=== PATIENT | female | born 1975 | race African-American/Black ===

== ENCOUNTER 2016-05-15 22:51 | Emergency (ER) ==
--- NOTE | 2016-05-16 01:22 | PROVIDER DOCUMENTATION ---
Addendum entered and electronically signed by Warren Hale MD 05/16/16 03:25: Departure - Departure Time of Disposition Order: 03:25 DIAGNOSIS: Pyelonephritis Disposition: HOME 01 Certified Medical Emergency: Emergent Condition: Good Prescriptions: Sulfamethoxazole/Tmp D.s. [Septra Ds] 1 each PO BID #14 tablet Referrals: Isak Borrero CRNP [Primary Care Provider] - Original Note: HPI-General Adult - General Source: patient - History of Present Illness -Gen Adult Nature of Presenting Problems: Pt is a 41 yof who presents to ER with CC of Cough and chest pain x1 week. Pt reports that approximately 1 week ago, she had an asthma attack and has since developed a worsening cough that has caused her to develop rib pain. Pt now complains of cough, headache, body aches, F/chills, sob, and wheezing. On exam, pt is severely tender to palpation over RUQ. Location of Pain/Injury: reports: other (Chest wall) Pain Radiation: reports: no radiation Quality of Pain: reports: tightness Severity: reports: moderate Onset/Duration: reports: 1 week ago Timing: reports: still present Context/Activities at Onset: reports: other (post asthma attack) Modifying Factors: worse with: palpation Associated Symptoms: reports: chest pain, cough, fatigue, fever/chills, headaches, muscle aches, shortness of breath, pain with inspiration, weakness. denies: nausea, sensory/motor loss, swelling/mass in abdomen, syncope, vomiting , trouble walking <Mandeep Amado - Last Filed: 05/16/16 01:32> <Warren Hale - Last Filed: 05/16/16 03:20> - General Chief Complaint: Cold Symptoms Stated Complaint: COLD SX Time Seen by Provider: 05/16/16 01:14 Allergies/Adverse Reactions: Patient Allergies Allergy/AdvReac Type Severity Reaction Status Date / Time Latex, Natural Rubber AdvReac Mild RASH Verified 05/16/16 00:12 Home Medications: Home Medication List Medication Instructions Recorded Confirmed Last Taken Type Aspirin 81 mg PO DAILY #0 tablet 01/02/12 07/15/14 07/14/14 Rx Budesonide/Formoterol Inhaler 2 puff INH BID #0 inhaler 01/02/12 07/15/1407/14/ 15 Rx [Symbicort 160/4.5 Microgm Inhaler] Digoxin [Lanoxin] 125 microgm PO QAM #0 tablet 01/02/12 07/15/14 07/14/14 Rx Furosemide [Lasix] 20 mg PO QAM #0 tablet 01/02/12 07/15/14 07/14/14 Rx Magnesium Oxide [Mag-Ox] 400 mg PO DAILY #30 tablet 01/02/12 07/15/14 07/14/14 Rx Potassium Chloride E.r. [Klor-Con] 20 meq PO DAILY #30 tablet 01/02/12 07/15/14 07/14/14 Rx Carvedilol [Coreg] 12.5 mg PO BID 02/18/13 07/15/14 07/14/14 History Fluticasone/Salmeterol [Advair 1 each IH DAILY 05/07/13 07/15/14 07/14/14 History 250-50 Diskus] LISINOpril [Prinivil] 20 mg PO BID 05/07/13 07/15/14 07/14/14 History Metformin [Glucophage] 500 mg PO BID CC 04/01/14 07/15/14 07/14/14 History Codeine/Promethazine [Phenergan 10 ml PO TID PRN PRN #120 ml 07/15/14 Unknown Rx with Codeine] Prednisone 20 mg PO DAILY #7 tablet 07/15/14 Unknown Rx Spironolactone 25 mg PO DAILY 07/15/14 07/15/14 07/14/14 History Review of Systems - Adult - REVIEW OF SYSTEMS - ADULT Constitutional: reports: chills, fever, fatique. denies: night sweats, weight gain, weight loss Eyes: reports: no symptoms reported Ears, Nose, Mouth & Throat: reports: no symptoms reported Cardiovascular: reports: chest pain. denies: edema, heart murmur, irregular heart rate, orthopnea, palpitations, poor circulation, PND, syncope Respiratory: reports: cough, dyspnea on exertion, excessive sputum production, pleurisy, shortness of breath, wheezing. denies: chronic cough, hemoptysis Gastrointestinal: reports: abdominal pain. denies: hematemesis, constipation, diarrhea, difficulty swallowing, frequent heartburn, nausea, poor appetite, rectal bleeding, vomiting Genitourinary: reports: no symptoms reported Musculoskeletal: reports: muscle aches, muscle weakness. denies: bone pain, back pain, frequent leg cramps, joint pain, joint swelling, neck pain Integumentary: reports: no symptoms reported Neurological: reports: no symptoms reported Psychiatric: reports: no symptoms reported Endocrine: reports: no symptoms reported Hematologic/Lymphatic: reports: no symptoms reported Allergic/Immunologic: reports: no symptoms reported All Other Systems: Reviewed and Negative <Mandeep Amado - Last Filed: 05/16/16 01:32> Past History - Adult - PAST MEDICAL HISTORY-ADULT Review of Records: reports: Nursing Assessment Review, Medications Reviewed Cardiovascular: reports: CHF, HTN Gastrointestinal: reports: GERD Endocrine/Immune: reports: Diabetes - PRIOR SURGERIES/PROCEDURES Surgical/Procedure History: reports: reviewed, not pertinent - PRIOR HOSPITALIZATIONS Prior Hospitalizations: reports: for other non-related - IMMUNIZATION STATUS Childhood Immunizations: See Nurse Assessment Flu Vaccine: See Nurse Assessment <Mandeep Amado - Last Filed: 05/16/16 01:32> Physical Exam-General - PHYSICAL EXAM-ADULT Initial Vital Signs Reviewed: Yes - CONSTITUTIONAL General Appearance: appears well, alert, moderate distress, lethargic, slow to respond. negative: no apparent distress, mild distress, severe distress, cachetic, obese, thin, anxious, obtunded, combative - NECK Neck: non-tender, full range of motion, supple. negative: C-spine tenderness, limited range of motion, lymphadenopathy - RESPIRATORY Respiratory: wheezing (mild), other (moderate central chest pain on palpation). negative: chest non-tender, lungs clear, normal breath sounds, respiratory distress, decreased breath sounds, accessory muscle use - CARDIOVASCULAR Cardiovascular: normal peripheral pulses, regular rate, rhythm. negative: bradycardia, tachycardia, diastolic murmur, systolic murmur, irregularly irregular - GASTROINTESTINAL (ABDOMEN) Abdominal Exam: normal bowel sounds, soft, tenderness (RUQ severely tender on palpation). negative: non tender, abnormal bowel sounds, distended, guarding, mass - MUSCULOSKELETAL Back Exam: no CVA tenderness, no vertebral tenderness. negative: CVA tenderness , decreased range of motion, ecchymosis, muscle spasm, swelling, vertebral tenderness Extremity: normal range of motion, non-tender, normal gait. negative: erythema , inflammation, pedal edema, slow capillary refill, swelling, tenderness - NEUROLOGIC Neurologic: grossly normal, no motor/sensory deficits - PSYCHIATRIC Psych/Mental Status: normal thought content, normal thought process, oriented x 3, depressed affect. negative: normal mood/affect <Mandeep Amado - Last Filed: 05/16/16 01:32> Progress - PLAN OF CARE/RESULTS Progress/Plan/Lab Results: POC: Blood work - XRAY 1 XRAY: Bilateral XRAY Study: Chest Impression: See EMR Report XRAY Interpretation: Normal <Mandeep Amado - Last Filed: 05/16/16 01:32> Departure <Mandeep Amado - Last Filed: 05/16/16 01:32> - Departure Time of Disposition Order: 03:19 Certified Medical Emergency: Emergent <Warren Hale - Last Filed: 05/16/16 03:20> - Departure DIAGNOSIS: Pyelonephritis Disposition: HOME 01 Condition: Good Referrals: Isak Borrero CRNP [Primary Care Provider] - Attestation - Scribe Verification/Attestation Scribe:: Mandeep Amado Acting as Scribe for:: Warren Hale Scribe documention review:: This chart was documented by a scribe and accurately reflects the service the provider performed and the decisions made by the provider. <Mandeep Amado - Last Filed: 05/16/16 01:32> Physician Attestation
[2016-05-16] MEDS ORDERED: MOTRIN PO ONE (02:10)
[2016-05-16 02:12] LABS: MANUAL DIFF NEEDED? NO
[2016-05-16 02:13] LABS: BASO% 0.3 % (0.0-0.8); EOS# 0.32 X1000 (0.0-0.7); EOS% 4.1 % (0.0-10.0); HEMATOCRIT 34.8 % (37.0-47.0); HEMOGLOBIN 11.6 g/dL (12.0-16.0); LYMPH# 0.73 X1000 (1.2-3.4); LYMPH% 9.4 % (20.5-51.1); MCH 26.5 PG (27-31); MCHC 33.3 g/dL (33-37); MCV 79.5 FL (81-99); MONO# 0.78 X1000 (0.11-0.59); MONO% 10.1 % (1.7-9.3); MPV 10.2 FL (7.4-10.4); NEUT% 76.1 % (42.2-75.2); PLT 329 X1000 (130-400); RBC 4.38 XMIL (4.2-5.4)
[2016-05-16 02:21] LABS: URINE MICRO REVIEW NEEDED? NO; URINE SOURCE CLEAN CATCH
[2016-05-16 02:23] LABS: BILIRUBIN URINE NEGATIVE (NEGATIVE); BLOOD URINE MODERATE (NEGATIVE); COLOR YELLOW; GLUCOSE URINE NEGATIVE (NEGATIVE); LEUKOCYTES URINE SMALL (NEGATIVE); NITRITE URINE POSITIVE (NEGATIVE); PH URINE 7.5; PROTEIN URINE TRACE mg/dL (NEGATIVE); SP GRAVITY URINE 1.012; TURBIDITY URINE HAZY (CLEAR); UROBILINOGEN URINE NORMAL (NORMAL)
[2016-05-16 02:25] LABS: UR EPITHELIAL CELLS <10 /HPF (<10); URINE BACTERIA 4+ /HPF; URINE CULTURE NEEDED? YES; URINE RBC 20-40 /HPF (<10)
[2016-05-16 02:34] LABS: AGAP 13; ALBUMIN 3.9 g/dL (3.5-5.0); ALKALINE PHOSPHATASE 68 U/L (32-104); BUN 8 mg/dL (8-22); CALCIUM 8.8 mg/dL (8.8-10.2); CHLORIDE 100 mmol/L (98-107); COSMO 272; GOT 13 U/L (10-30); GPT 17 U/L (10-36); POTASSIUM 4.3 mmol/L (3.5-5.1); SODIUM 137 mmol/L (136-145); TCO2 24 mmol/L (25-35); TOTAL BILIRUBIN 0.18 mg/dL (0.20-1.00); TOTAL PROTEIN 6.8 g/dL (6.3-8.3)
[2016-05-16] MEDS ORDERED: NS 500 ML IV ONE (03:10)
[2016-05-16] MEDS ORDERED: ROCEPHIN 1 GM/NS 50 ML IV ONE (03:10)
[2016-05-16 04:14] VITALS: BP 123/65
--- NOTE | 2016-05-16 11:28 | Diag Imaging Result Document ---
PROCEDURE NAME: CHEST-2 VIEWS - 05/16/2016 CHEST, 2 VIEWS: COMPARISON: 08/06/2015. FINDINGS: Heart size appears borderline enlarged and mildly increased compared to the previous exam. There is mild tortuosity of the thoracic aorta. There are right lower lung calcified granuloma and calcified right hilar and mediastinal lymph nodes similar to the previous exam and consistent with old granulomatous disease. There is a nodular opacity over the lateral right base on the PA view. This may represent artifact from nipple shadow. There is no consolidation, pleural effusion, or pneumothorax identified. There is no obvious rib lesion seen. IMPRESSION: Borderline cardiomegaly. Nodular opacity at lateral right base on PA view, possibly representing artifact from nipple shadow. Follow-up PA chest with nipple markers is recommended for further evaluation. No other evidence of acute disease.
== END 2016-05-16 04:35 | disposition home or self-care (01) ==
LOC: ED 22:51
DX: N12 Tubulo-interstitial nephritis, not specified as acute or chronic (principal); R50.9 Fever, unspecified; R07.89 Other chest pain; R53.83 Other fatigue; R05 Cough; R06.09 Other forms of dyspnea; R06.02 Shortness of breath; R09.1 Pleurisy; Z79.899 Other long term (current) drug therapy; R09.3 Abnormal sputum; R06.2 Wheezing; M79.1 Myalgia; M62.81 Muscle weakness (generalized); I50.9 Heart failure, unspecified; I10 Essential (primary) hypertension; K21.9 Gastro-esophageal reflux disease without esophagitis; E11.9 Type 2 diabetes mellitus without complications; R10.11 Right upper quadrant pain; Z79.52 Long term (current) use of systemic steroids; Z79.51 Long term (current) use of inhaled steroids; Z79.82 Long term (current) use of aspirin
CPT/HCPCS: 71020; 80053; 81001; 85025; 87077; 87081; 87088; 87430; 87804; J0696; J7040